=== PATIENT | male | born 1990 | race Asian ===

== ENCOUNTER 2018-03-18 22:24 | Emergency (ER) | payer SELFPAY ==
[~2018-03-18] VITALS: Ht 167.6 cm; Wt 102.5 kg
[2018-03-18 22:30] VITALS: Ht 167.6 cm; Wt 102.5 kg
[2018-03-19 02:24] VITALS: BP 140/80
== END 2018-03-19 02:24 | disposition home or self-care (01) ==
LOC: ED 22:24
DX: S60.562A Insect bite (nonvenomous) of left hand, initial encounter (principal); Z91.013 Allergy to seafood; W57.XXXA Bitten or stung by nonvenomous insect and other nonvenomous arthropods, initial encounter; Y93.89 Activity, other specified; Y92.89 Other specified places as the place of occurrence of the external cause; Y99.8 Other external cause status
CPT/HCPCS: J0696